=== PATIENT | female | born 1995 | race Caucasian/White ===

== ENCOUNTER → 2020-02-23 | Outpatient (CLI) | payer OTHER ==
--- NOTE | 2020-02-23 14:29 | Diagnostic Imaging Report ---
TECHNIQUE: MRI of the abdomen and MRCP WITHOUT intravenous contrast. 3-D volume reconstructions were obtained to evaluate the biliary ductal system. INDICATION: 24-year-old woman with abnormal liver function tests. COMPARISON: None. FINDINGS: ABSENCE OF INTRAVENOUS CONTRAST DECREASES SENSITIVITY FOR DETECTION OF FOCAL LESIONS AND VASCULAR PATHOLOGY. LOWER THORAX: Unremarkable. LIVER: No cirrhosis or hepatic steatosis. No focal hepatic lesions. BILIARY: Gallbladder is unremarkable. Intrahepatic and extra hepatic bile ducts are normal in caliber and contour without definite filling defect. SPLEEN: Spleen is prominent and measures 14 cm in the anteroposterior dimension. PANCREAS: No focal masses or ductal dilatation. ADRENALS: No adrenal nodules. KIDNEYS/URETERS: No hydronephrosis or solid mass lesions. PERITONEUM/RETROPERITONEUM: No free fluid. LYMPH NODES: No lymphadenopathy. VESSELS: Unremarkable. GI TRACT: No distention or wall thickening. BONES AND SOFT TISSUES: Unremarkable. IMPRESSION: Prominent spleen. Otherwise, unremarkable MRCP. Signed by: Alida Scott MD on 02/23/2020 2:26 PM
== END ==
LOC: MRI 11:04
PROVIDERS: ATTEND Internal Medicine Gastroenterology
DX: R10.13 Epigastric pain (principal); K80.20 Calculus of gallbladder without cholecystitis without obstruction; R74.0 Nonspecific elevation of levels of transaminase and lactic acid dehydrogenase [LDH]; R93.3 Abnormal findings on diagnostic imaging of other parts of digestive tract; E66.01 Morbid (severe) obesity due to excess calories; Z71.3 Dietary counseling and surveillance
CPT/HCPCS: 74181